=== PATIENT | male | born 1975 | race Two or more races ===

== ENCOUNTER 2018-06-09 10:11 | Emergency (ER) | payer SELFPAY ==
[~2018-06-09] VITALS: Ht 188 cm; Wt 128.8 kg
[2018-06-09] MEDS ORDERED: cefTRIAXone 1GM/10ml IVPUSH 10 ML IV ONE (10:45)
[2018-06-09] MEDS ORDERED: CLINDAMYCIN 900MG IV 50 ML IV ONE (10:45)
[2018-06-09 11:38] LABS: Basophils # (auto) 0 uL; Basophils % (auto) 0.5 % (0.0-2.0); Eosinophils # (auto) 0.2 uL; Eosinophils % (auto) 1.5 % (0.0-7.0); Hematocrit 46.9 % (41.0-53.0); Hemoglobin 15.4 g/dL (13.5-17.5); Lymphocytes # (auto) 2.3 uL; Lymphocytes % (auto) 21.9 % (10.0-50.0); Mean Corpuscular Hemoglobin 27.1 pg (28.0-32.0); Mean Corpuscular Hgb Conc. 32.8 g/dL (32.0-36.0); Mean Corpuscular Volume 82.6 fL (80.0-100.0); Monocytes # (auto) 0.9 uL; Monocytes % (auto) 8.2 % (0.0-12.0); Neutrophils # (auto) 7.2 uL; Neutrophils % (auto) 67.9 % (37.0-80.0); Nucleated Red Blood Cells % 0.1 %; Platelet Count (auto) 213 10^3/uL (140-450); Red Blood Cells 5.68 10^6/uL (4.5-5.90); Red Cell Distribution Width 13.5 % (11.8-14.3); White Blood Cell 10.7 10^3/uL (4.4-10.8)
[2018-06-09 11:58] LABS: Albumin 3.4 g/dL (3.4-5.0); BUN/Creatinine Ratio 10.6; Bilirubin, Total 0.4 mg/dL (0.2-1.0); Calcium 8.4 mg/dL (8.5-10.1); Potassium 3.8 mmol/L (3.5-5.1); Total Protein 7.2 g/dL (6.4-8.2)
[2018-06-09 12:52] VITALS: BP 151/90
== END 2018-06-09 13:23 | disposition home or self-care (01) ==
LOC: ER 10:13
DX: J34.0 Abscess, furuncle and carbuncle of nose (principal); F17.210 Nicotine dependence, cigarettes, uncomplicated; Z90.49 Acquired absence of other specified parts of digestive tract
CPT/HCPCS: 36415; 70486; 80053; 85025; 96365; 96366; 96375; 99285; J0696; J3490

== ENCOUNTER 2020-08-08 21:22 | Emergency (ER) | payer SELFPAY ==
[~2020-08-08] VITALS: Ht 188 cm; Wt 132.9 kg
[2020-08-08 22:19] VITALS: BP 138/76
[2020-08-08 22:52] LABS: Basophils # (auto) 0.1 10 ^3/uL (0-0.2); Basophils % (auto) 0.8 % (0.0-2.0); Eosinophils # (auto) 0.2 10 ^3/uL (0-0.8); Eosinophils % (auto) 2.4 % (0.0-7.0); Hematocrit 45.7 % (41.0-53.0); Hemoglobin 14.9 g/dL (13.5-17.5); Lymphocytes # (auto) 2.6 10 ^3/uL (0.4-5.4); Mean Corpuscular Hemoglobin 27.2 pg (28.0-32.0); Mean Corpuscular Hgb Conc. 32.6 g/dL (32.0-36.0); Mean Corpuscular Volume 83.3 fL (80.0-100.0); Monocytes # (auto) 0.6 10 ^3/uL (0-1.3); Monocytes % (auto) 8.1 % (0.0-12.0); Neutrophils # (auto) 4.2 10 ^3/uL (1.6-8.6); Neutrophils % (auto) 54.7 % (37.0-80.0); Platelet Count (auto) 205 10^3/uL (140-450); Red Blood Cells 5.48 10^6/uL (4.5-5.90); Red Cell Distribution Width 13.3 % (11.8-14.3); White Blood Cell 7.6 10^3/uL (4.4-10.8)
[2020-08-08 23:05] LABS: Alanine Aminotransferase 31 U/L (16-61); Albumin 3.4 g/dL (3.4-5.0); Anion Gap 7 (5-15); Aspartate Aminotransferase 12 U/L (15-37); BUN/Creatinine Ratio 11.9; Blood Urea Nitrogen 13 mg/dL (7-18); Calcium 8.8 mg/dL (8.5-10.1); Carbon Dioxide 27 mmol/L (21-32); Chloride 103 mmol/L (98-107); GFR African American 94 mL/min; GFR Non-African American 77 mL/min; Glucose 376 mg/dL (74-106); Potassium 4.7 mmol/L (3.5-5.1); Sodium 137 mmol/L (136-145)
[2020-08-08 23:10] LABS: Alkaline Phosphatase 125 U/L (45-117); Bilirubin, Total 0.2 mg/dL (0.2-1.0); Total Protein 7.3 g/dL (6.4-8.2)
== END 2020-08-09 02:00 | disposition left against medical advice (07) ==
LOC: ER 21:22
DX: R20.0 Anesthesia of skin (principal); R53.1 Weakness; Z53.21 Procedure and treatment not carried out due to patient leaving prior to being seen by health care provider
CPT/HCPCS: 36415; 70450; 71045; 80053; 83880; 84484; 85025

== ENCOUNTER 2020-08-09 06:13 | Emergency (ER) | payer SELFPAY ==
[~2020-08-09] VITALS: Ht 188 cm; Wt 132.9 kg
[2020-08-09 09:09] VITALS: BP 135/80
== END 2020-08-09 09:19 | disposition home or self-care (01) ==
LOC: ER 06:13
DX: R07.89 Other chest pain (principal); F41.9 Anxiety disorder, unspecified; F17.210 Nicotine dependence, cigarettes, uncomplicated
CPT/HCPCS: 36415; 84484; 93005

== ENCOUNTER 2025-07-15 02:16 | Emergency (ER) | payer MEDICAID ==
[~2025-07-15] VITALS: Ht 188 cm; Wt 108.9 kg
[2025-07-15 02:23] VITALS: BP 155/94; PULSE 99; RESP 18; TEMP 99.1; O2SAT 96
--- NOTE | 2025-07-15 04:01 | ED.PDOC ---
General HPI Comments This is a 50 year-old male who presents to the ED via wheelchair with a chief complaint of right flank pain as of X4 hours ago. He denies any recent injury or known cause of symptoms. Patient has a history of polysubstance abuse, methamphetamines, ETOH, cocaine, MJ, Heroin, and cigarettes. Patient reports recent ingestion of ETOH hours ago. Patient has no further complaints at this time and otherwise denies dysuria, hematuria, N/V/D, fever, chills, hematemesis, or chest pain. REVIEW OF SYSTEMS: General: No fever, no chills, or fatigue HEENT: No sore throat, no earache, no congestion, no neck pain. Cardiac: No chest pain. No palpitations. Lungs: No shortness of breath, no cough. GI: No nausea, no vomiting, no diarrhea, no constipation, Positive abdominal pain : Positive R Flank Pain. No dysuria, frequency, or urgency. No hematuria. Musculoskeletal: No joint pain , no joint swelling, no extremity edema. Skin: No rash, no itching. Neuro: No headache, no dizziness, no weakness EXAM: General: Awake, alert and oriented. No acute distress. Skin: Skin in warm, dry and intact. Appropriate color for ethnicity. HEENT: The head is normocephalic and atraumatic. Conjunctivae are clear without exudates or hemorrhage. Sclera is non-icteric. EOM are intact. No signs of nystagmus. Eyelids are normal in appearance without swelling or lesions. Oral mucosa is pink and moist Cardiac: Heart rate and rhythm are normal. Respiratory: No signs of respiratory distress. Abdominal: Right flank & RUQ tenderness. Abdomen is soft, without distention. Extremities: Upper and lower extremities are atraumatic in appearance without deformity or edema. Neurological: The patient is awake, alert and oriented to person, place, and time with normal speech. Speech is clear. There is no facial asymmetry. Psychiatric: Appropriate mood and affect. Good judgement and insight Chief Complaint: Flank Pain Time Seen by MD: 03:42 Primary Care Provider: NONE Reviewed notes: Medications, Allergies Allergies: Coded Allergies: NO KNOWN ALLERGIES (Unverified , 06/09/18) Information Source: Patient Mode of Arrival: Ambulatory Severity: Moderate Timing: Hours Duration: Since onset Prehospital treatment: None Onset: Spontaneous Location: (R) Flank associated signs and symptoms: Abdominal Pain, Flank Pain Past Medical History PAST MEDICAL HISTORY: Denies Surgical History: Appendectomy Family History Family History: Unobtainable Social History Smoker: Cigarettes Alcohol: Heavy Drugs: Heroin, Marijuana, Methamphetamine Lives In: Home Was a procedure done? Was a procedure done?: No Differential Diagnosis Kidney stone (Male): Strain, Urinary obstruction, Urolithiasis Urinary Problem (Male): Prostatitis, UTI X-Ray, Labs, Meds, VS Vital Signs Date Time Temp Pulse Resp B/P (MAP) Pulse Ox O2 Delivery O2 Flow Rate FiO2 07/15/25 02:23 99.1 99 18 155/94 96 99.1 Lab Test 07/15/25 02:52 Range/Units Urine Color Light-yellow Yellow Urine Clarity Clear Clear Urine pH 5.0 5.0-9.0 Urine Specific [place] 1.040 H 1.001-1.035 Urine Protein Negative Negative Urine Ketones Negative Negative Urine Blood Negative Negative /uL Urine Nitrite Negative Negative Urine Bilirubin Negative Negative Urine Urobilinogen Normal Negative mg/dL Urine Leukocyte Esterase Negative Negative /uL Urine RBC 2 0 - 3 /hpf Urine Microscopic WBC < 1 0-3 /HPF Urine Squamous Epithelial Cells Few <5 /hpf Urine Bacteria None seen None Seen /hpf Urine Glucose 4+ H Normal mg/dL Images Reviewed?: Images reviewed and evaluated by me Time of 1ST Reevaluation: 04:21 Reevaluation 1ST: Unchanged Patient Education/Counseling: Diagnosis, Treatment Family Education/Counseling: Diagnosis, Treatment Medical Screening: No EMC Exist At This Time SEPSIS Sepsis Screen Date sepsis recognized/suspect: Jul 15, 2025 Time Sepsis recognized/suspect: 225 Recent Procedure: No On Antibiotic Therapy: No Respiratory Rate >20: No Heart Rate >90: Yes Temp<36 C (96.8 F) or >38.3 C: No SBP <90 or MAP <65 mmHG: No New Acute Mental Status Change: No Is the patient on CPAP, BIPAP,: No Physician Orders Complete Blood Count (07/15/25 04:45) Comprehensive Metabolic Panel (07/15/25 04:45) Lactic Acid W/ Reflex Order (07/15/25 04:45) Lipase (07/15/25 04:45) Urinalysis (07/15/25 04:45) Ct Ab Pel Wo Con-No Oral Or Iv (07/15/25 04:45) Vital Signs Date Time Temp Pulse Resp B/P (MAP) Pulse Ox O2 Delivery O2 Flow Rate FiO2 07/15/25 02:23 99.1 99 18 155/94 96 99.1 Critical Care Note Critical Care Time?: No Stability Stability form required: No Heart Score Heart Score: Heart Score Response (Comments) Value History N/A 0 EKG N/A 0 Age N/A 0 Risk Factors N/A 0 Troponin N/A 0 Total 0 I personally scribed for SERGO SPRAGUE MD ([email or web address]) on 07/15/25 at 04:01. Electronically submitted by Missy Patel ([email or web address]). SERGO SPRAGUE MD Jul 15, 2025 04:01
[2025-07-15 04:29] LABS: Urine Protein, UAD Negative (Negative)
[2025-07-15] MEDS ORDERED: KETOROLAC TROMETH 30 MG/ML 1ML VIAL IM ONE (04:45)
[2025-07-15] MEDS ORDERED: ONDANSETRON ODT 4 MG TAB PO ONE (04:45)
== END 2025-07-15 10:26 | disposition left against medical advice (07) ==
LOC: ER 02:19
DX: F14.10 Cocaine abuse, uncomplicated (principal); F17.210 Nicotine dependence, cigarettes, uncomplicated; Z90.49 Acquired absence of other specified parts of digestive tract
CPT/HCPCS: 81001